=== PATIENT | male | born 1995 | race Caucasian/White ===

== ENCOUNTER 2017-10-29 01:37 | Emergency (ER) | payer OTHER, SELFPAY ==
[2017-10-29 01:38] VITALS: BP 145/86; PULSE 94; RESP 18; TEMP 37.1; O2SAT 99; BMI 21.7
[2017-10-29] MEDS: Diphth,Pertuss(Acell),Tet Vac 0.5 ML Vial IM (01:59)
--- NOTE | 2017-10-29 03:15 | NURSING ---
DR HODGES SAID TO GIVE PT A TETANUS SHOT.
== END 2017-10-29 03:15 | disposition left against medical advice (07) ==
PROVIDERS: Emergency Provider Emergency Medicine
DX: T14.8XXA Other injury of unspecified body region, initial encounter (principal); X58.XXXA Exposure to other specified factors, initial encounter
CPT/HCPCS: 90715; 99281